=== PATIENT | male | born 1955 | race African-American/Black ===

== ENCOUNTER 2019-01-26 13:40 | Inpatient (IN) | payer MEDICARE, MEDICAID ==
[~2019-01-26] VITALS: Ht 182.9 cm; Wt 72.1 kg
[~2019-01-26 13:40] MED LIST: AMLO10TA80 PO; CHLO25TA2 PO; PANT40TA4 PO; QUET50TA PO
[2019-01-26] MEDS ORDERED: MORPHINE SULFATE 4 MG/ML CPJ (NOT FOR IM USE) IV ONE (15:00)
[2019-01-26 15:07] LABS: HEMATOCRIT. 28.5 % (42.0-52.0); MEAN CORPUSCULAR HEMOGLOBIN 38.3 pg (28.0-32.0); MEAN CORPUSCULAR VOLUME 108.8 fL (80.0-94.0); MEAN PLATELET VOLUME 8.4 fl (7.4-10.4); PLATELET 116 x1000/uL (130-400); RED BLOOD CELL COUNT 2.62 mill/uL (4.7-6.1); RED CELL DISTRIBUTION WIDTH 16.6 % (11.6-14.6)
[2019-01-26 15:11] LABS: CHLORIDE 102 mEq/L (98-107)
[2019-01-26 15:15] LABS: ETHANOL BLOOD 72 mg/dL
[2019-01-26 15:20] LABS: INR 1.6; PARTIAL THROMBOPLASTIN TIME 32.1 sec (23.4-31.0); PROTHROMBIN TIME 16.3 sec (9.6-11.0)
[2019-01-26 15:33] LABS: PLATELET ESTIMATE INCREASED
[2019-01-26] MEDS ORDERED: IOHEXOL-300 100 ML BOTTLE ONE (16:44)
[2019-01-26] MEDS ORDERED: SODIUM CHLORIDE 0.9% 1,000 ML IV ONE (16:45)
[2019-01-26 20:35] VITALS: BP 125/81
[2019-01-26 21:18] VITALS: BP 125/81
[2019-01-26] MEDS ORDERED: ONDANSETRON HCL 4MG/2ML INJ IV PRN (22:45)
[2019-01-26] MEDS ORDERED: DEXT 5%/0.45% NACL 1000ML 1,000 ML IV SCH (22:45)
[2019-01-26] MEDS ORDERED: IPRATROPIUM/ALBUTEROL 0.5-3(2.5)MG/3ML NEB HHN PRN (22:45)
[2019-01-27] VITALS (8 sets, daily range): BP systolic 87–115; BP diastolic 57–80
[2019-01-27] MEDS ORDERED: PIPERACILLIN/TAZOBACTAM 3.375GM/50ML PREMIX IV SCH
[2019-01-27] MEDS ORDERED: POTASSIUM CHLORIDE 20MEQ TABLET SR PO NR
[2019-01-27] MEDS: MORPHINE SULFATE 2 MG/ML CPJ (NOT FOR IM USE) IV PRN ×2 (00:01→06:09)
[2019-01-27] MEDS: PIPERACILLIN/TAZOBACTAM 3.375 G in DEXT 5% WATER 100 ML IV SCH ×4 (01:00→18:58)
[2019-01-27] MEDS: PANTOPRAZOLE 40MG DR TABLET PO SCH (08:56)
[2019-01-27] MEDS ORDERED: QUETIAPINE FUMARATE 50MG TABLET PO SCH (09:00)
[2019-01-27] MEDS ORDERED: LACTULOSE 20G/30ML UDC PO NR (11:00)
[2019-01-27 12:19] LABS: CLARITY URINE CLOUDY (CLEAR); COLOR URINE DARK YELLOW (YELLOW); KETONES URINE TRACE (NEGATIVE); LEUKOCYTE ESTERASE URINE NEGATIVE (NEGATIVE); NITRITE URINE NEGATIVE (NEGATIVE); OCCULT BLOOD URINE NEGATIVE (NEGATIVE); PROTEIN URINE TRACE (NEGATIVE); SPECIFIC GRAVITY URINE 1.053 (1.005-1.030)
[2019-01-27 12:40] LABS: *AMPHETAMINES SCREEN URINE NEGATIVE (NEGATIVE); *BARBITURATES SCREEN URINE NEGATIVE (NEGATIVE); *BENZODIAZEPINES SCREEN URINE NEGATIVE (NEGATIVE); *COCAINE SCREEN URINE NEGATIVE (NEGATIVE); CANNABINOID URINE SCREEN PRESUMTIVE POSITIVE (NEGATIVE); METHADONE URINE SCREEN NEGATIVE (NEGATIVE); OPIATES URINE SCREEN PRESUMTIVE POSITIVE (NEGATIVE); PHENCYCLIDINE URINE SCREEN NEGATIVE (NEGATIVE)
[2019-01-27] MEDS ORDERED: HYDRALAZINE 20MG/ML VIAL IV PRN (13:30)
[2019-01-27] MEDS ORDERED: CLONIDINE 0.1MG TABLET PO PRN (13:30)
[2019-01-27] MEDS ORDERED: LACTULOSE 20G/30ML UDC PO PRN (13:30)
[2019-01-27] MEDS ORDERED: LORAZEPAM 2MG/ML CPJ IV PRN (13:30)
[2019-01-27 15:57] LABS: BG BASE EXCESS -2.5 mmol/L (-2.0-2.0); BG CARBOXYHEMOGLOBIN 0.4 % (0.5-1.5); BG DEOXYHEMOGLOBIN 2.6 % (0.0-5.0); BG FRACTION INSPIRED OXYGEN 21; BG HCO3 ACT 20.6 mmol/L (22.0-26.0); BG METHEMOGLOBIN 0.2 % (0.0-1.5); BG OXYGEN SATURATION 97.4 % (92.0-98.5); BG OXYHEMOGLOBIN 96.8 % (94.0-97.0); BG PCO2 30.5 mmHg (35.0-45.0); BG PH 7.447 (7.350-7.450); BG PO2 94.1 mmHg (75.0-100.0); BG SAMPLE SITE RIGHT RADIAL; BG TOTAL HEMOGLOBIN 12.9 g/dL (12.0-18.0); BG VENT MODE ROOM AIR
[2019-01-27] MEDS ORDERED: VANCOMYCIN 1500MG in DEXTROSE 5% WATER 250ML IV SCH (16:00)
[2019-01-27 17:05] LABS: HEMATOCRIT 34.2 % (42.0-52.0); HEMOGLOBIN 11.7 g/dL (14.0-18.0); MEAN CORPUSCULAR HEMOGLOBIN 37.9 pg (28.0-32.0); MEAN CORPUSCULAR VOLUME 110.7 fL (80.0-94.0); PLATELET 85 x1000/uL (130-400); RED BLOOD CELL COUNT 3.09 mill/uL (4.7-6.1)
[2019-01-27 17:17] LABS: CHLORIDE 99 mEq/L (98-107)
[2019-01-27] MEDS: MVI, ADULT NO.1 10 ML, FOLIC ACID 1 MG, THIAMINE HCL 100 MG in DEXT 5%/0.45% NACL 1000M... IV SCH ×4 (17:46)
[2019-01-27] MEDS ORDERED: MAGNESIUM 1 G PREMIX 100 ML IV NR (18:30)
[2019-01-27] MEDS: LACTULOSE 20G/30ML UDC PO SCH (18:45)
[2019-01-27 20:28] LABS: INR 2.3
[2019-01-28] VITALS (22 sets, daily range): BP systolic 69–112; BP diastolic 44–66
[2019-01-28] MEDS: PIPERACILLIN/TAZOBACTAM 3.375 G in DEXT 5% WATER 100 ML IV SCH ×2 (00:06→05:37)
[2019-01-28] MEDS: DEXT 5%/0.45% NACL 1000ML 1,000 ML IV SCH ×2 (05:30→10:20)
[2019-01-28 05:40] LABS: CHLORIDE 99 mEq/L (98-107)
[2019-01-28 05:41] LABS: HEMATOCRIT 24.9 % (42.0-52.0); HEMOGLOBIN 8.6 g/dL (14.0-18.0); MEAN CORPUSCULAR HEMOGLOBIN 37.8 pg (28.0-32.0); MEAN CORPUSCULAR VOLUME 109.5 fL (80.0-94.0); PLATELET 57 x1000/uL (130-400); RED BLOOD CELL COUNT 2.27 mill/uL (4.7-6.1); RED CELL DISTRIBUTION WIDTH 16.9 % (11.6-14.6)
[2019-01-28] MEDS: MVI, ADULT NO.1 10 ML, FOLIC ACID 1 MG, THIAMINE HCL 100 MG in DEXT 5%/0.45% NACL 1000M... IV SCH ×4 (09:00)
[2019-01-28] MEDS: PANTOPRAZOLE 40MG DR TABLET PO SCH (09:00)
[2019-01-28] MEDS: LACTULOSE 20G/30ML UDC PO SCH ×3 (09:00→20:22)
[2019-01-28] MEDS ORDERED: MIDODRINE HCL 5MG TABLET PO NR (10:53)
[2019-01-28] MEDS ORDERED: VANCOMYCIN 1250MG in DEXTROSE 5% WATER 250ML IV SCH (12:00)
[2019-01-28] MEDS: MIDODRINE HCL 5MG TABLET PO SCH ×2 (12:06→16:59)
[2019-01-28] MEDS: MEROPENEM 1,000 MG in SODIUM CHLORIDE 0.9% 50 ML IV SCH (12:24)
[2019-01-28] MEDS ORDERED: DEXTROSE 50% WATER 50ML SYRINGE IV PRN (12:30)
[2019-01-28] MEDS: BLOOD SUGAR DIAGNOSTIC STRIP TEST SCH ×3 (12:58→20:22)
[2019-01-28] MEDS ORDERED: INSULIN LISPRO 100 UNITS/ML SUBCUT SCH (13:00)
[2019-01-28] MEDS: SODIUM CHLORIDE 0.45% 1,000 ML IV SCH (15:00)
[2019-01-28] MEDS: IPRATROPIUM/ALBUTEROL 0.5-3(2.5)MG/3ML NEB HHN SCH ×2 (17:36→20:40)
[2019-01-28 18:02] LABS: BG BASE EXCESS -2.5 mmol/L (-2.0-2.0); BG CARBOXYHEMOGLOBIN 0.3 % (0.5-1.5); BG DEOXYHEMOGLOBIN 5.3 % (0.0-5.0); BG HCO3 ACT 21.1 mmol/L (22.0-26.0); BG METHEMOGLOBIN 0.3 % (0.0-1.5); BG OXYGEN SATURATION 94.7 % (92.0-98.5); BG OXYHEMOGLOBIN 94.1 % (94.0-97.0); BG PCO2 31.9 mmHg (35.0-45.0); BG PH 7.438 (7.350-7.450); BG SAMPLE SITE RIGHT BRACHIAL; BG TOTAL HEMOGLOBIN 9.7 g/dL (12.0-18.0); BG VENT MODE NASAL CANNULA
[2019-01-28] MEDS: INSULIN LISPRO 100 UNITS/ML SUBCUT SCH ×2 (18:51→20:22)
[2019-01-28] MEDS: METHYLPREDNISOLONE SOD SUCC 40 MG/ML VIAL IV SCH (20:17)
[2019-01-28] MEDS ORDERED: SODIUM CHLORIDE 0.9% 250 ML IV NR (22:06)
[2019-01-28] MEDS ORDERED: NOREPINEPHRINE 32 MG in DEXT 5% WATER 468 ML IV PRN (23:30)
[2019-01-29] VITALS (99 sets, daily range): BP systolic 81–122; BP diastolic 51–89
[2019-01-29] MEDS: MEROPENEM 1,000 MG in SODIUM CHLORIDE 0.9% 50 ML IV SCH (00:10)
[2019-01-29] MEDS: IPRATROPIUM/ALBUTEROL 0.5-3(2.5)MG/3ML NEB HHN SCH ×6 (01:15→20:00)
[2019-01-29] MEDS: LACTULOSE 20G/30ML UDC PO SCH ×4 (02:12→20:19)
[2019-01-29 06:14] LABS: HEMATOCRIT 26.6 % (42.0-52.0); HEMOGLOBIN 9.1 g/dL (14.0-18.0); MEAN CORPUSCULAR HEMOGLOBIN 37.5 pg (28.0-32.0); MEAN CORPUSCULAR VOLUME 109.9 fL (80.0-94.0); RED BLOOD CELL COUNT 2.42 mill/uL (4.7-6.1); RED CELL DISTRIBUTION WIDTH 17.4 % (11.6-14.6)
[2019-01-29 06:15] LABS: CHLORIDE 99 mEq/L (98-107)
[2019-01-29] MEDS: BLOOD SUGAR DIAGNOSTIC STRIP TEST SCH ×4 (07:50→20:12)
[2019-01-29] MEDS ORDERED: SODIUM CHLORIDE 0.9% 500 ML IV NR (08:15)
[2019-01-29] MEDS: INSULIN LISPRO 100 UNITS/ML SUBCUT SCH ×4 (09:11→20:20)
[2019-01-29] MEDS: METHYLPREDNISOLONE SOD SUCC 40 MG/ML VIAL IV SCH ×2 (09:11→20:19)
[2019-01-29] MEDS: PANTOPRAZOLE 40MG DR TABLET PO SCH (09:11)
[2019-01-29] MEDS: MIDODRINE HCL 5MG TABLET PO SCH ×3 (09:12→17:59)
[2019-01-29] MEDS: MEROPENEM 500 MG in SODIUM CHLORIDE 0.9% 50 ML IV SCH ×2 (10:23→22:30)
[2019-01-29] MEDS: SODIUM CHLORIDE 0.45% 1,000 ML IV SCH (10:27)
[2019-01-29] MEDS ORDERED: INSULIN LISPRO 100 UNITS/ML SUBCUT NR (12:00)
[2019-01-29 12:21] LABS: BG BASE EXCESS -2.4 mmol/L (-2.0-2.0); BG CARBOXYHEMOGLOBIN 0.2 % (0.5-1.5); BG FRACTION INSPIRED OXYGEN 28; BG HCO3 ACT 21.8 mmol/L (22.0-26.0); BG METHEMOGLOBIN 0.3 % (0.0-1.5); BG OXYHEMOGLOBIN 93.5 % (94.0-97.0); BG PCO2 34.7 mmHg (35.0-45.0); BG PH 7.416 (7.350-7.450); BG PO2 77.1 mmHg (75.0-100.0); BG SAMPLE SITE RIGHT BRACHIAL; BG TOTAL HEMOGLOBIN 8.6 g/dL (12.0-18.0); BG VENT MODE NASAL CANNULA
[2019-01-29 13:47] LABS: INR 1.7; PROTHROMBIN TIME 17.4 sec (9.6-11.0)
[2019-01-29] MEDS: LORAZEPAM 2MG/ML CPJ IV PRN (16:26)
[2019-01-29 20:07] LABS: CLARITY URINE TURBID (CLEAR); COLOR URINE DARK YELLOW (YELLOW); KETONES URINE TRACE (NEGATIVE); LEUKOCYTE ESTERASE URINE 1+ (NEGATIVE); NITRITE URINE NEGATIVE (NEGATIVE); OCCULT BLOOD URINE 3+ (NEGATIVE); PROTEIN URINE 1+ (NEGATIVE); SPECIFIC GRAVITY URINE 1.042 (1.005-1.030)
[2019-01-29] MEDS: MORPHINE SULFATE 2 MG/ML CPJ (NOT FOR IM USE) IV PRN (21:10)
[2019-01-30] VITALS (100 sets, daily range): BP systolic 92–145; BP diastolic 49–113
[2019-01-30] MEDS: IPRATROPIUM/ALBUTEROL 0.5-3(2.5)MG/3ML NEB HHN SCH ×6 (00:09→20:49)
[2019-01-30] MEDS: LACTULOSE 20G/30ML UDC PO SCH ×4 (04:08→21:54)
[2019-01-30 05:45] LABS: HEMOGLOBIN 7.9 g/dL (14.0-18.0); MEAN CORPUSCULAR HEMOGLOBIN 37.5 pg (28.0-32.0); MEAN CORPUSCULAR VOLUME 109.3 fL (80.0-94.0); PLATELET 60 x1000/uL (130-400); RED BLOOD CELL COUNT 2.11 mill/uL (4.7-6.1); RED CELL DISTRIBUTION WIDTH 17.2 % (11.6-14.6)
[2019-01-30 06:04] LABS: CHLORIDE 100 mEq/L (98-107)
[2019-01-30] MEDS: SODIUM CHLORIDE 0.45% 1,000 ML IV SCH (08:25)
[2019-01-30] MEDS ORDERED: LIDOCAINE HCL 1% 20ML VIAL (Pyxis) INJ ONE ×2 (08:26→10:41)
[2019-01-30] MEDS: LORAZEPAM 2MG/ML CPJ IV PRN ×3 (08:26→21:54)
[2019-01-30] MEDS: BLOOD SUGAR DIAGNOSTIC STRIP TEST SCH ×3 (08:26→21:39)
[2019-01-30] MEDS: METHYLPREDNISOLONE SOD SUCC 40 MG/ML VIAL IV SCH ×2 (08:26→21:54)
[2019-01-30] MEDS: MIDODRINE HCL 5MG TABLET PO SCH ×3 (08:26→17:19)
[2019-01-30] MEDS: PANTOPRAZOLE 40MG DR TABLET PO SCH (08:26)
[2019-01-30] MEDS: INSULIN LISPRO 100 UNITS/ML SUBCUT SCH ×3 (08:32→21:55)
[2019-01-30] MEDS ORDERED: SODIUM BICARBONATE 4% (2.4MEQ) 5ML VIAL IV ONE (10:42)
[2019-01-30] MEDS: MEROPENEM 500 MG in SODIUM CHLORIDE 0.9% 50 ML IV SCH (10:44)
[2019-01-30 12:49] LABS: BG BASE EXCESS -4.1 mmol/L (-2.0-2.0); BG CARBOXYHEMOGLOBIN 0.1 % (0.5-1.5); BG FRACTION INSPIRED OXYGEN 28; BG HCO3 ACT 19.7 mmol/L (22.0-26.0); BG OXYHEMOGLOBIN 92.9 % (94.0-97.0); BG PCO2 31.1 mmHg (35.0-45.0); BG PH 7.419 (7.350-7.450); BG PO2 72.7 mmHg (75.0-100.0); BG SAMPLE SITE RIGHT BRACHIAL; BG VENT MODE NASAL CANNULA
[2019-01-30 19:41] LABS: HEMATOCRIT 27.3 % (42.0-52.0); HEMOGLOBIN 9.2 g/dL (14.0-18.0)
[2019-01-30 19:50] LABS: INR 1.6; PROTHROMBIN TIME 16.6 sec (9.6-11.0)
[2019-01-31] VITALS (82 sets, daily range): BP systolic 110–167; BP diastolic 53–109
[2019-01-31] MEDS: MORPHINE SULFATE 2 MG/ML CPJ (NOT FOR IM USE) IV PRN (00:13)
[2019-01-31] MEDS: IPRATROPIUM/ALBUTEROL 0.5-3(2.5)MG/3ML NEB HHN SCH ×6 (00:55→20:20)
[2019-01-31] MEDS: SODIUM CHLORIDE 0.45% 1,000 ML IV SCH (02:45)
[2019-01-31] MEDS: LACTULOSE 20G/30ML UDC PO SCH ×5 (03:00→21:22)
[2019-01-31] MEDS: LORAZEPAM 2MG/ML CPJ IV PRN (04:47)
[2019-01-31 05:39] LABS: HEMATOCRIT 25.8 % (42.0-52.0); MEAN CORPUSCULAR HEMOGLOBIN 35.3 pg (28.0-32.0); MEAN CORPUSCULAR VOLUME 101.6 fL (80.0-94.0); RED BLOOD CELL COUNT 2.54 mill/uL (4.7-6.1); RED CELL DISTRIBUTION WIDTH 23.7 % (11.6-14.6)
[2019-01-31 05:44] LABS: CHLORIDE 109 mEq/L (98-107)
[2019-01-31 05:59] LABS: PLATELET 35 x1000/uL (130-400)
[2019-01-31] MEDS: BLOOD SUGAR DIAGNOSTIC STRIP TEST SCH ×4 (08:32→21:12)
[2019-01-31] MEDS: METHYLPREDNISOLONE SOD SUCC 40 MG/ML VIAL IV SCH (08:47)
[2019-01-31] MEDS: MEROPENEM 500 MG in SODIUM CHLORIDE 0.9% 50 ML IV SCH (10:33)
[2019-01-31] MEDS: PANTOPRAZOLE 40MG DR TABLET PO SCH (10:33)
[2019-01-31] MEDS: MIDODRINE HCL 5MG TABLET PO SCH ×3 (10:34→18:01)
[2019-01-31 11:36] LABS: PLATELET 36 x1000/uL (130-400)
[2019-02-01] VITALS (17 sets, daily range): BP systolic 107–140; BP diastolic 9–110
[2019-02-01] MEDS: IPRATROPIUM/ALBUTEROL 0.5-3(2.5)MG/3ML NEB HHN SCH ×5 (00:17→16:36)
[2019-02-01] MEDS: LACTULOSE 20G/30ML UDC PO SCH ×3 (03:22→15:00)
[2019-02-01] MEDS: BLOOD SUGAR DIAGNOSTIC STRIP TEST SCH ×3 (07:30→17:30)
[2019-02-01] MEDS ORDERED: MULTIVITAMINS,THER W-MINERALS TABLET PO SCH (09:00)
[2019-02-01] MEDS ORDERED: FOLIC ACID/VITAMIN B COMP W-C TABLET PO SCH (09:00)
[2019-02-01] MEDS: PANTOPRAZOLE 40MG DR TABLET PO SCH (09:00)
[2019-02-01 10:11] LABS: A/G RATIO 0.5 (0.7-1.7); ALBUMIN 1.9 g/dL (2.9-4.4); ALPHA-1-GLOBULIN 0.3 g/dL (0.0-0.4); ALPHA-2-GLOBULIN 0.5 g/dL (0.4-1.0); BETA GLOBULIN 1.2 g/dL (0.7-1.3); GAMMA GLOBULINS 1.7 g/dL (0.4-1.8); GLOBULIN TOTAL 3.7 g/dL (2.2-3.9); M-SPIKE Not Observed g/dL (Not Observed); TOTAL PROTEIN SERUM 5.6 g/dL (6.0-8.5)
[2019-02-01] MEDS: METHYLPREDNISOLONE SOD SUCC 40 MG/ML VIAL IV SCH (10:12)
[2019-02-01 10:57] LABS: BG BASE EXCESS -1.2 mmol/L (-2.0-2.0); BG CARBOXYHEMOGLOBIN 0.1 % (0.5-1.5); BG DEOXYHEMOGLOBIN 10.6 % (0.0-5.0); BG HCO3 ACT 21.9 mmol/L (22.0-26.0); BG METHEMOGLOBIN 0.1 % (0.0-1.5); BG OXYGEN SATURATION 89.4 % (92.0-98.5); BG OXYHEMOGLOBIN 89.2 % (94.0-97.0); BG PCO2 31.1 mmHg (35.0-45.0); BG PH 7.466 (7.350-7.450); BG PO2 60.4 mmHg (75.0-100.0); BG SAMPLE SITE RIGHT BRACHIAL; BG TOTAL HEMOGLOBIN 10.3 g/dL (12.0-18.0); BG VENT MODE NASAL CANNULA
[2019-02-01] MEDS: MEROPENEM 500 MG in SODIUM CHLORIDE 0.9% 50 ML IV SCH (11:00)
[2019-02-01] MEDS: MIDODRINE HCL 5MG TABLET PO SCH ×3 (13:00→17:00)
[2019-02-01 13:14] LABS: TOTAL PROTEIN RANDOM URINE 151.4 mg/dL (Not Estab.)
[2019-02-01] MEDS: THIAMINE HCL 100MG TABLET PO SCH ×2 (13:19→17:00)
[2019-02-01 13:33] LABS: CHLORIDE 109 mEq/L (98-107)
[2019-02-01 13:36] LABS: HEMATOCRIT. 27.5 % (42.0-52.0); HEMOGLOBIN. 9.5 g/dL (14.0-18.0); MEAN CORPUSCULAR HEMOGLOBIN 35.1 pg (28.0-32.0); MEAN CORPUSCULAR VOLUME 102.1 fL (80.0-94.0); MEAN PLATELET VOLUME 9.4 fl (7.4-10.4); RED BLOOD CELL COUNT 2.69 mill/uL (4.7-6.1)
[2019-02-01 14:01] LABS: PLATELET 30 x1000/uL (130-400)
[2019-02-01 14:14] LABS: PLATELET ESTIMATE MARKEDLY DECREASED
== END 2019-02-01 20:18 | DRG 871 ==
LOC: ER 13:40 → 5WST 16:46 → EDBEDREQ 16:52 → EDBEDREQTM 16:52 → ENRESERV 17:39 → 5EST 01-27 14:28 → CVICU 01-28 22:20 → 5EST 02-01 01:45
PROVIDERS: ADMIT Internal Medicine; ATTEND Internal Medicine
PROC: 0W9G3ZZ Drainage of Peritoneal Cavity, Percutaneous Approach (ICD-10-PCS; 2019-01-26)
PROC: 02HV33Z Insertion of Infusion Device into Superior Vena Cava, Percutaneous Approach (ICD-10-PCS; 2019-01-27)
PROC: B5181ZA Fluoroscopy of Superior Vena Cava using Low Osmolar Contrast, Guidance (ICD-10-PCS; 2019-01-27)
PROC: B548ZZA Ultrasonography of Superior Vena Cava, Guidance (ICD-10-PCS; 2019-01-27)
PROC: 02H633Z Insertion of Infusion Device into Right Atrium, Percutaneous Approach (ICD-10-PCS; 2019-01-30)
PROC: 0W9G3ZZ Drainage of Peritoneal Cavity, Percutaneous Approach (ICD-10-PCS; 2019-01-30)
PROC: B244ZZZ Ultrasonography of Right Heart (ICD-10-PCS; 2019-01-30)
PROC: 5A1D70Z Performance of Urinary Filtration, Intermittent, Less than 6 Hours Per Day (ICD-10-PCS; principal; 2019-02-01)
DX: A41.51 Sepsis due to Escherichia coli [E. coli] (principal); G93.41 Metabolic encephalopathy; E43 Unspecified severe protein-calorie malnutrition; J96.00 Acute respiratory failure, unspecified whether with hypoxia or hypercapnia; K85.90 Acute pancreatitis without necrosis or infection, unspecified; N17.0 Acute kidney failure with tubular necrosis; R65.21 Severe sepsis with septic shock; J69.0 Pneumonitis due to inhalation of food and vomit; N39.0 Urinary tract infection, site not specified; D68.59 Other primary thrombophilia; R18.8 Other ascites; K86.1 Other chronic pancreatitis; K74.60 Unspecified cirrhosis of liver; E87.6 Hypokalemia; D63.8 Anemia in other chronic diseases classified elsewhere; F10.10 Alcohol abuse, uncomplicated; F17.200 Nicotine dependence, unspecified, uncomplicated; I10 Essential (primary) hypertension; J45.909 Unspecified asthma, uncomplicated; Y90.3 Blood alcohol level of 60-79 mg/100 ml; R73.9 Hyperglycemia, unspecified; Z99.2 Dependence on renal dialysis; Z78.1 Physical restraint status; Z79.899 Other long term (current) drug therapy
CPT/HCPCS: 36415; 36573; 36600; 49083; 71045; 74177; 76700; 76770; 76937; 80061; 80202; 80305; 80320; 81003; 82105; 82140; 82270; 82375; 82805; 82962; 83036; 83735; 83880; 84153; 84155; 84156; 84165; 84166; 84484; 85014; 85018; 85027; 85049; 85384; 86850; 86900; 86920; 87186; 92610; 93005; 93306; 93970; 94640; 97162; 99285; C1725; C1752; J1815; J2060; J2185; J2270; J2405; J2543; J2920; J3370; J3411; J3475; J3490; J7060; J7620; P9016; P9034; Q9967; G0103; G0480